=== PATIENT | female | born 1975 | race Hispanic/Latino ===

== ENCOUNTER 2021-08-19 08:30 | Day surgery (SDC) | payer OTHER ==
[~2021-08-19] VITALS: Ht 160 cm; Wt 56.7 kg
[2021-08-19] MEDS ORDERED: ONDANSETRON HCL INJ 2MG/ML 2ML 2 MG/ML VIAL IV PRN ×2 (08:45→12:45)
[2021-08-19] MEDS ORDERED: KETOROLAC TROMETHAMINE 30 MG/ML VIAL IV STA (08:53)
[2021-08-19] MEDS ORDERED: FENTANYL CITRATE/PF 100MCG/2 ML INJ IV PRN (09:00)
[2021-08-19 09:09] LABS: BASOPHILS # (AUTO) 0.1 (0.0-0.1); EOSINOPHILS % 0.6 % (0.0-6.0); HEMATOCRIT 37.1 % (34.2-44.1); LYMPHOCYTES # (AUTO) 1.1 (1.0-3.2); LYMPHOCYTES % 22.2 % (18.0-39.1); MEAN CORPUSCULAR HGB CONC 29.6 g/dL (31-35); MEAN CORPUSCULAR VOLUME 77.5 fL (81-99); MONOCYTES # (AUTO) 0.3 (0.2-0.8); NEUTROPHILS # (AUTO) 3.4 (2.1-6.9); PLATELET COUNT 248 x10e3/uL (140-360); RED BLOOD COUNT 4.79 x10e6/uL (3.6-5.1); RED CELL DISTRIBUTION WIDTH 20.7 % (11.7-14.4)
[2021-08-19 09:35] LABS: ALBUMIN 4.2 g/dL (3.5-5.0); ALBUMIN/GLOBULIN RATIO 1.1 (0.8-2.0); ANION GAP 13.9 mmol/L (8-16); CALCIUM 9.6 mg/dL (8.4-10.2); CREATININE, SERUM 0.71 mg/dL (0.57-1.11); POTASSIUM 3.9 mmol/L (3.5-5.1)
[2021-08-19] MEDS ORDERED: IOPAMIDOL 370 MG/ML 200 ML INFUS..BTL INJ ONE (09:52)
[2021-08-19] MEDS ORDERED: SODIUM CHLORIDE 0.9% 50ML 50 ML ONE (09:52)
[2021-08-19 10:00] LABS: CLARITY,URINE SL CLOUDY (CLEAR); COLOR,URINE YELLOW (YELLOW); KETONES,URINE NEGATIVE (NEGATIVE); LEUKOCYTE ESTERASE ,URINE NEGATIVE (NEGATIVE); NITRITE,URINE NEGATIVE (NEGATIVE); PROTEIN,URINE DIPSTICK NEGATIVE (NEGATIVE); URINE UROBILINOGEN 0.2 mg/dL (0.2 - 1)
[2021-08-19 10:03] LABS: BACTERIA,URINE FEW /HPF; EPITHELIAL CELLS,URINE FEW /LPF; RBC,URINE >50 /HPF (0-5); WBC,URINE (MAN) 0-5 /HPF (0-5)
[2021-08-19] MEDS ORDERED: SEVOFLURANE INHAL SOLN 250 ML PEN BTL ONE (12:08)
[2021-08-19] MEDS ORDERED: PHENYLEPHRINE HCL 1% 10 MG/ML VIAL ONE (12:08)
[2021-08-19] MEDS ORDERED: LIDOCAINE HCL 2% LOCAL INJ 5 ML SDV VIAL INJ ONE (12:08)
[2021-08-19] MEDS ORDERED: PROPOFOL IV EMULSION 10 MG/ML 20 ML VIAL ONE (12:08)
[2021-08-19] MEDS ORDERED: GLYCOPYRROLATE INJ 0.2 MG/ML VIAL ONE (12:08)
[2021-08-19] MEDS ORDERED: ONDANSETRON HCL INJ 2MG/ML 2ML 2 MG/ML VIAL ONE (12:08)
[2021-08-19] MEDS ORDERED: ROCURONIUM BROMIDE 10 MG/ML 5ML VIAL IV ONE (12:08)
[2021-08-19] MEDS ORDERED: DEXAMETHASONE SOD PHOS INJ 4 MG/ML SDV ONE (12:08)
[2021-08-19] MEDS ORDERED: KETOROLAC TROMETHAMINE 30 MG/ML VIAL ONE (12:08)
[2021-08-19] MEDS ORDERED: NEOSTIGMINE 1 MG/ML 10ML VIAL ONE (12:08)
[2021-08-19] MEDS ORDERED: POVIDONE IODINE 0.05% 0.05 % ML PO ONE (12:08)
[2021-08-19] MEDS ORDERED: FENTANYL CITRATE/PF 100MCG/2 ML INJ ONE (12:34)
[2021-08-19] MEDS ORDERED: MIDAZOLAM HCL 2 MG/2 ML VIAL ONE (12:34)
[2021-08-19] MEDS ORDERED: Morphine 4mg Syringe 4 MG/ML INJ IV PRN (12:45)
[2021-08-19] MEDS ORDERED: SODIUM CHLORIDE 0.9% 1000ML 1,000 ML IV SCH (12:45)
[2021-08-19] MEDS ORDERED: BUPIVACAINE 0.25% 30ML SDV ONE (13:49)
[2021-08-19] MEDS ORDERED: ACETAMINOPHEN 1000 MG/100 ML 100 ML IV ONE (14:08)
[2021-08-19] MEDS ORDERED: MEPERIDINE HCL INJ 25 MG/ML VIAL ONE (15:40)
[2021-08-19 16:05] VITALS: BP 97/59
[2021-08-19] MEDS ORDERED: ONDANSETRON HCL 4 MG ORAL DISINTEGRATING TAB ONE (16:16)
== END 2021-08-19 16:05 | disposition home or self-care (01) ==
LOC: ER 08:45 → OR 13:16 → UNDOADMOB 13:16 → ERHOLD 13:16 → PACU V 15:07 → OR 16:05 → UNDODISOB 16:22
PROVIDERS: ATTEND Obstetrics & Gynecology
DX: N83.202 Unspecified ovarian cyst, left side (principal); Z20.822 Contact with and (suspected) exposure to COVID-19
CPT/HCPCS: 36415; 58662; 74177; 76830; 76856; 80053; 81001; 83690; 84702; 85025; 88302; 99284; G0378; J0131; J1100; J1885; J2001; J2175; J2250; J2370; J2405; J2704; J2710; J3010; J7030; Q0162; Q9967; U0002; 88304